=== PATIENT | female | born 2000 | race Caucasian/White ===

== ENCOUNTER 2024-06-10 06:06 | Inpatient (IN) | payer OTHER ==
[2024-06-10] MEDS ORDERED: OXYTOCIN 10 UNIT/ML 1 ML VIAL IM PRN (06:27)
[2024-06-10] MEDS ORDERED: miSOPROStoL 200 MCG TAB PO PRN (06:27)
[2024-06-10] MEDS ORDERED: miSOPROStoL 200 MCG TAB RECTAL PRN (06:27)
[2024-06-10] MEDS ORDERED: CARBOPROST TROMETHAMINE 250 MCG/ML 1 ML AMP IM PRN (06:27)
[2024-06-10] MEDS ORDERED: TERBUTALINE 1 MG/ML VIAL SQ PRN (06:27)
[2024-06-10] MEDS ORDERED: TRANEXAMIC 1,000 MG/100ML-NACL 1,000 MG in EMPTY BAG 1 BAG IV PRN (06:27)
[2024-06-10] MEDS: LACTATED RINGERS 1,000 ML IV SCH (06:36)
[2024-06-10] MEDS: OXYTOCIN 30 UNITS/500 ML NS 30 UNIT in SALINE 1 500ML.BAG IV SCH (06:45)
[2024-06-10 06:52] LABS: Basophils # (A) 0.1 k/uL (0-0.2); Basophils % (A) 1 %; Eosinophils # (A) 0.3 k/uL (0-0.7); Eosinophils % (A) 2 %; HCT 34.1 % (34.0-46.0); HGB 11.4 gm/dL (11.4-16.0); Lymphocytes # (A) 2.4 k/uL (1.0-4.8); Lymphocytes % (A) 15 %; MCH 28.5 pg (25.0-35.0); MCHC 33.3 g/dL (31.0-37.0); MCV 85.6 fL (80.0-100.0); Monocytes # (A) 0.6 k/uL (0-1.0); Monocytes % (A) 4 %; Neutrophils % (A) 77 %; Platelet Count 179 k/uL (150-450); RBC 3.99 m/uL (3.80-5.40); WBC 15.5 k/uL (3.8-10.6)
[2024-06-10] MEDS ORDERED: SODIUM CHLORIDE 0.9% 250 ML BAG ONE (11:33)
[2024-06-10] MEDS ORDERED: fentaNYL (PF) 50 MCG/ML 5 ML AMP ONE (11:33)
[2024-06-10] MEDS ORDERED: ROPIVACAINE 5 MG/ML 30 ML VIAL ONE (11:33)
[2024-06-10] MEDS: METHYLERGONOVINE 0.2 MG/ML 1 ML AMP IM PRN (23:10)
[2024-06-10] MEDS: LIDOCAINE 0.5% (PF) 5 MG/ML (50 ML SDV) SQ PRN (23:15)
[2024-06-10] MEDS ORDERED: LANOLIN CREAM 1 GM TUBE TOPICAL PRN (23:19)
[2024-06-10] MEDS ORDERED: diphenhydrAMINE 25 MG CAP PO PRN (23:19)
[2024-06-10] MEDS ORDERED: diphenhydrAMINE 50 MG CAP PO PRN (23:19)
[2024-06-10] MEDS ORDERED: diphenhydrAMINE 50 MG/ML 1 ML VIAL IVP PRN ×2 (23:19)
[2024-06-10] MEDS ORDERED: HYDROCORTISONE 2.5% RECTAL CREAM 30 GM TUBE RECTAL PRN (23:19)
[2024-06-10] MEDS ORDERED: SIMETHICONE 80 MG CHEWABLE PO PRN (23:19)
[2024-06-10] MEDS ORDERED: ZOLPIDEM 5 MG TAB PO PRN (23:19)
--- NOTE | 2024-06-10 23:23 | P.PROBDLV ---
Vaginal Delivery Note - . Vaginal Delivery Note: Date of service 06/10 Findings Viable female delivered at 2259, weight of 7 pounds 6.2 ounces, Apgars of 8 and 9 at 1 and 5 minutes respectively. This is a 23-year-old 1 para 0 that presented to labor and delivery at 41/7 weeks for scheduled induction of labor secondary to postdates. Patient had been receiving routine care which had been essentially uncomplicated. Patient was admitted to labor and delivery and Pitocin induction of labor was begun. Patient made good progress through labor eventually becoming uncomfortable and requesting epidural. Epidural was placed without difficulty by the anesthesia department. Patient made good progress toward complete dilation. Once completely dilated patient began pushing and had a normal spontaneous vaginal delivery of a viable female at 2259, weight of 7 pounds 6.2 ounces, Apgars of 8 and 9 at 1 and 5 minutes respectively. After 2- minute delay the umbilical cord was doubly clamped and cut and the placenta was delivered spontaneously intact with a three-vessel cord being noted. On inspection of patient's vaginal vault a midline second-degree laceration was appreciated this was injected with lidocaine and repaired in the usual fashion with 3-0 Rapide. Hemostasis was appreciated after closure. Uterus was noted to be quite boggy therefore Methergine was given and uterus firmed with fundal massage. Bladder was drained for approximately 100 cc of clear yellow urine via red rubber catheter Estimated blood loss 200 cc All counts were to be correct x 2 at the end of the delivery. Patient and infant tolerated delivery well and are resting comfortably
[2024-06-11] MEDS: BENZOCAINE/MENTHOL SPRAY 1 GM/SPRAY AEROSOL TOPICAL PRN (00:21)
[2024-06-11] MEDS: IBUPROFEN 800 MG TAB PO SCH (00:21)
[2024-06-11] MEDS: ACETAMINOPHEN TAB 500 MG TAB PO SCH (05:15)
--- NOTE | 2024-06-11 08:04 | P.PNOBGVD ---
Subjective - Subjective Principal diagnosis: Post day #1 Interval history: Patient is doing well . Lochia is noted to be minimal. Breast- feeding is going well. Pain is well-controlled. Patient reports: Reports appetite normal, Reports voiding normally, Reports pain well controlled, Reports ambulating normally : doing well, nursing well Objective - Latest Vital Signs Latest vital signs: Vital Signs Temp Pulse Resp BP Pulse Ox 06/11/24 05:19 97.5 F L 95 18 107/68 98 06/11/24 01:17 96.9 F L 117 H 18 123/70 99 06/11/24 01:02 120 H 18 128/70 06/11/24 00:47 120 H 16 119/49 06/11/24 00:32 130 H 16 137/71 06/11/24 00:17 120 H 16 117/56 06/11/24 00:02 125 H 16 115/62 98 06/10/24 23:47 123 H 18 109/59 98 06/10/24 23:32 125 H 18 107/59 06/10/24 23:17 98.0 F 125 H 18 107/53 Intake and Output 06/10/24 06/11/24 06/11/24 22:59 06:59 14:59 Intake Total 445.200 Output Total 575 Balance -129.800 Intake: Intake, IV Titration 205.200 Amount Oxytocin 30 Units/500 ml 205.200 Ns 30 unit In Saline 1 500ml.bag @ Per Protocol IV .Q0M [facility] Rx#:[id number] Oral 240 Output: Output, Estimated Blood 200 Loss Amount Output, Quantitative 375 Blood Loss Other: # Voids 1 - Exam Extremities: Present: normal, edema Abdomen: Present: normal appearance, soft Uterus: Present: normal, firm Assessment and Plan (1) Term Current Visit: Yes Status: Acute Code(s): Z34.90 - ENCNTR FOR SUPRVSN OF NORMAL , UNSP, UNSP TRIMESTER SNOMED Code(s): 09131395 (2) Status post vaginal delivery Current Visit: Yes Status: Acute Code(s): TML6178 - SNOMED Code(s): 806168046 (3) Obstetrical laceration, second degree Current Visit: Yes Status: Acute Code(s): O70.1 - SECOND DEGREE PERINEAL LACERATION DURING DELIVERY SNOMED Code(s): 3698839 Plan: 23-year-old G1 now P1 status postnormal spontaneous vaginal delivery. Doing well Continue routine care anticipate discharge home tomorrow
[2024-06-11] MEDS: SENNOSIDES-DOCUSATE SODIUM 1 EACH TAB PO SCH (08:24)
--- NOTE | 2024-06-12 08:41 | P.DS ---
Providers Date of admission: 06/10/24 06:06 Expected date of discharge: 06/12/24 Attending physician: Chanell Polanco Primary care physician: Stated None - Discharge Diagnosis(es) (1) Term Current Visit: Yes Status: Acute (2) Status post vaginal delivery Current Visit: Yes Status: Acute (3) Obstetrical laceration, second degree Current Visit: Yes Status: Acute Hospital Course: This is a 23 yo G1 now P1 that presented to labor and delivery on 06/10 for scheduled induction of labor. Patient was noted to be 40 and 1 sevenths weeks at the time of admission. Patient had been receiving routine care which had been essentially uncomplicated. Patient was admitted to labor and delivery and Pitocin induction of labor was begun. Patient made good progress through labor eventually becoming uncomfortable and requesting epidural. Patient made good progress toward complete dilation once completely dilated patient began pushing and had a normal spontaneous vaginal delivery of a viable female infant at 2259, weight of 7 pounds 6.2 ounces. Patient did sustain a midline second-degree laceration. Patient's course has been uneventful. In this day #2 she is ambulating and voiding without difficulty. She is tolerating a regular diet without nausea or vomiting. She states her pain is well-controlled. She denies concerns and would like discharge home. Patient Condition at Discharge: Good Plan - Discharge Summary New Discharge Prescriptions: No Action Vit No.179/Iron/Folic [ Tablet] 1 tab PO DAILY Aspirin [Adult Low Dose Aspirin EC] 81 mg PO DAILY Discharge Medication List Aspirin [Adult Low Dose Aspirin EC] 81 mg PO DAILY 02/29/24 [History] Vit No.179/Iron/Folic [ Tablet] 1 tab PO DAILY 02/29/24 [History] Follow up Appointment(s)/Referral(s): Chanell Polanco DO [Doctor of Osteopathic Medicine] - 07/21/24 10:15 am Patient Instructions/Handouts: Vaginal Delivery (DC), Vaginal Delivery (GEN) Activity/Diet/Wound Care/Special Instructions: No tub baths or intercourse until 6 weeks . [id number] ibuprofen 600 mg or 3 tablets every 6 hours as needed for pain. Patient is to make a routine visit at 6 weeks. Should she have any concerns prior to this visit she is urged to call the office and be seen prior. Discharge Disposition: HOME SELF-CARE
--- NOTE | 2024-06-12 08:42 | P.HPOB ---
History of Present Illness H&P Date: 06/10/24 Chief Complaint: Term 23-year-old 1 para 0 at 40 and 1 sevenths weeks that presents to labor and delivery for induction of labor. Patient has been receiving routine care which has been essentially uncomplicated. Patient notes good movement denies vaginal bleeding or loss of fluid blood work this patient is a blood type of A+, rubella status immune, RPR is nonreactive, hepatitis B surface engine negative, HIV negative, group be ta strep culture was negative on May 11. Review of Systems Constitutional: Denies chills, Denies fatigue, Denies fever Ears, nose, mouth and throat: Denies headache Cardiovascular: Reports leg edema Respiratory: Denies dyspnea Gastrointestinal: Denies constipation, Denies diarrhea, Denies nausea, Denies vomiting Genitourinary: Reports Past Medical History Past Medical History: No Reported History History of Any Multi-Drug Resistant Organisms: None Reported Past Surgical History: No Surgical Hx Reported Past Anesthesia/Blood Transfusion Reactions: No Reported Reaction Smoking Status: Former smoker Past Drug Use History: None Reported - Past Family History Mother Family Medical History: No Reported History Medications and Allergies Home Medications Medication Instructions Recorded Confirmed Type Aspirin [Adult Low Dose Aspirin EC] 81 mg PO DAILY 02/29/24 06/10/24 History Vit No.179/Iron/Folic 1 tab PO DAILY 02/29/24 06/10/24 History [ Tablet] Allergies Allergy/AdvReac Type Severity Reaction Status Date / Time Penicillins Allergy Rash/Hives Verified 06/10/24 06:27 Exam Osteopathic Statement: *. No significant issues noted on an osteopathic structural exam other than those noted in the History and Physical/Consult. Vital Signs Temp Pulse Resp BP Pulse Ox 06/10/24 06:26 97.6 F 96 18 136/75 99 Intake and Output 06/10/24 06/10/24 06/10/24 06:59 14:59 22:59 Intake Total 1000 Balance 1000 Intake: IV 1000 Other: Weight 83.007 kg Targeted physical exam is performed this date in general is a well-nourished well-developed female no acute distress, breathing is nonlabored, heart has a regular rate and rhythm, abdomen is gravid, on cervical exam she is 3/70/- 2 amniotomy is performed and clear fluid was obtained. heart tones are noted be category 1. She is asad irregularly. Results Result Diagrams: 06/10/24 06:35 Abnormal Lab Results - Last 24 Hours (Table) 06/10/24 Range/Units 06:35 WBC 15.5 H (3.8-10.6) k/uL Neutrophils # 12.0 H (1.3-7.7) k/uL Assessment and Plan (1) Term Current Visit: Yes Status: Acute Code(s): Z34.90 - ENCNTR FOR SUPRVSN OF NORMAL , UNSP, UNSP TRIMESTER SNOMED Code(s): 34528945 Plan: 23-year-old 1 para 0 at 41/7 weeks presents for induction of labor. Patient is admitted and Pitocin induction of labor is begun per hospital protocol. Options for analgesia are discussed. Patient states understanding will consider.
[2024-06-12 08:58] VITALS: BP 115/73; PULSE 86; RESP 16; TEMP 97.4
== END 2024-06-12 13:00 | disposition home or self-care (01) | DRG 560 ==
LOC: 4FBP 06:06
PROVIDERS: ADMIT Obstetrics & Gynecology Obstetrics; ATTEND Obstetrics & Gynecology Obstetrics
PROC: 10E0XZZ Delivery of Products of Conception, External Approach (ICD-10-PCS; principal; 2024-06-10)
PROC: 0KQM0ZZ Repair Perineum Muscle, Open Approach (ICD-10-PCS; 2024-06-10)
PROC: 10907ZC Drainage of Amniotic Fluid, Therapeutic from Products of Conception, Via Natural or Artificial Opening (ICD-10-PCS; 2024-06-10)
PROC: 3E033VJ Introduction of Other Hormone into Peripheral Vein, Percutaneous Approach (ICD-10-PCS; 2024-06-10)
DX: O26.893 Other specified pregnancy related conditions, third trimester (principal); O70.1 Second degree perineal laceration during delivery; Z37.0 Single live birth; Z79.82 Long term (current) use of aspirin; Z87.891 Personal history of nicotine dependence; Z88.0 Allergy status to penicillin; Z67.40 Type O blood, Rh positive
CPT/HCPCS: 85025; 86850; 86900; 86901

== ENCOUNTER 2024-07-29 22:45 | Emergency (ER) | payer OTHER ==
--- NOTE | 2024-07-29 23:13 | ED ---
Abdominal Pain HPI - General Source: patient Mode of arrival: ambulatory <Leif Mcneal - Last Filed: 07/29/24 23:12> <Neena Woods - Last Filed: 07/30/24 03:45> <Ismael Dodd - Last Filed: 07/30/24 07:09> - General Chief Complaint: Abdominal Pain Stated Complaint: abd pain Time Seen by Provider: 07/29/24 23:12 - History of Present Illness Initial Comments: 24-year-old female presenting with chief complaint of pelvic pain. Patient started having left-sided pelvic pain today. She does have history of ovarian cysts and states that this feels similar. She states that on Saturday she started her menstrual cycle and on Saturday she started a new control. Patient is 7 weeks . She is having nausea and vomiting. No known fever. No urinary symptoms. (Leif Mcneal) 24-year-old female presents to the emergency department for evaluation of left- sided abdominal pain. Patient states that this started today. She denies any history of similar pain. She notes it is a sharp pain. Denies any fever, chills. Denies urinary symptoms. Admits to nausea with vomiting. (Moises Woods) - Related Data Home Medications Medication Instructions Recorded Confirmed Aspirin [Adult Low Dose Aspirin EC] 81 mg PO DAILY 02/29/24 06/10/24 Vit No.179/Iron/Folic 1 tab PO DAILY 02/29/24 06/10/24 [ Tablet] Allergies Allergy/AdvReac Type Severity Reaction Status Date / Time Penicillins Allergy Rash/Hives Verified 06/10/24 06:27 Review of Systems ROS Other: All systems not noted in ROS Statement are negative. <Leif Mcneal - Last Filed: 07/29/24 23:12> ROS Other: All systems not noted in ROS Statement are negative. <Neena Woods - Last Filed: 07/30/24 03:45> ROS Other: All systems not noted in ROS Statement are negative. <Ismael Dodd - Last Filed: 07/30/24 07:09> ROS Statement: Those systems with pertinent positive or pertinent negative responses have been documented in the HPI. Past Medical History Past Medical History: No Reported History History of Any Multi-Drug Resistant Organisms: None Reported Past Surgical History: No Surgical Hx Reported Past Anesthesia/Blood Transfusion Reactions: No Reported Reaction Smoking Status: Former smoker Past Drug Use History: None Reported - Past Family History Mother Family Medical History: No Reported History <Leif Mcneal - Last Filed: 07/29/24 23:12> General Exam <Leif Mcneal - Last Filed: 07/29/24 23:12> Limitations: no limitations General appearance: alert, in no apparent distress Head exam: Present: atraumatic, normocephalic, normal inspection Eye exam: Present: normal appearance, PERRL, EOMI. Absent: scleral icterus, conjunctival injection, periorbital swelling ENT exam: Present: normal exam, mucous membranes moist Neck exam: Present: normal inspection. Absent: tenderness, meningismus, lymphadenopathy Respiratory exam: Present: normal lung sounds bilaterally. Absent: respiratory distress, wheezes, rales, rhonchi, stridor Cardiovascular Exam: Present: regular rate, normal rhythm, normal heart sounds. Absent: systolic murmur, diastolic murmur, rubs, gallop, clicks GI/Abdominal exam: Present: soft, normal bowel sounds. Absent: distended, tenderness, guarding, rebound, rigid Extremities exam: Present: normal inspection, full ROM, normal capillary refill. Absent: tenderness, pedal edema, joint swelling, calf tenderness Back exam: Present: normal inspection Neurological exam: Present: alert, oriented X3 Psychiatric exam: Present: normal affect, normal mood Skin exam: Present: warm, dry, intact, normal color. Absent: rash <Neena Woods - Last Filed: 07/30/24 03:45> - General Exam Comments Initial Comments: Visual Physical Exam Vital signs reviewed General: Well-appearing, nontoxic, no acute distress. Head: Normocephalic, atraumatic Eyes: PERRLA, EOMI ENT: Airway patent Chest: Nonlabored breathing Skin: No visual rash, normal skin tone Neuro: Alert and oriented 3 Musculoskeletal: No gross abnormalities (Leif Mcneal) Course Vital Signs 07/29/24 07/30/24 23:02 03:06 Temperature 97.9 F 97.8 F Pulse Rate 84 73 Respiratory 18 18 Rate Blood Pressure 161/74 107/71 O2 Sat by Pulse 100 99 Oximetry Medical Decision Making <Leif Mcneal - Last Filed: 07/29/24 23:12> - Lab Data Result diagrams: 07/29/24 23:17 07/29/24 23:17 <Neena Woods - Last Filed: 07/30/24 03:45> - Lab Data Result diagrams: 07/29/24 23:17 07/29/24 23:17 <Ismael Dodd - Last Filed: 07/30/24 07:09> - Medical Decision Making I performed the quick note portion of this visit, electronically signed Leif Mcneal PA-C (Leif Mcneal) Was pt. sent in by a medical professional or institution (, JOHN, PATROL GUARD, urgent care, hospital, or alf...) When possible be specific @ -[No] Did you speak to anyone other than the patient for history (EMS, parent, family, police, friend...)? What history was obtained from this source @ -[No] Did you review nursing and triage notes (agree or disagree)? Why? @ -[I reviewed and agree with nursing and triage notes] Were old charts reviewed (outside hosp., previous admission, EMS record, old EKG, old radiological studies, urgent care reports/EKG's, alf records)? Report findings @ -[No old charts were reviewed] Differential Diagnosis (chest pain, altered mental status, abdominal pain women, abdominal pain men, vaginal bleeding, weakness, fever, dyspnea, syncope, headache, dizziness, GI bleed, back pain, seizure, CVA, palpatations, mental health, musculoskeletal)? @ -Differential Abdominal Pain Women: Appendicitis, Cholecystitis, diverticulosis, ischemic bowel, pancreatitis, hepatitis, UTI, gastroenteritis, AAA, incarcerated hernia, bowel obstruction, constipation, inflammatory bowel, hepatitis, peptic ulcer disease, splenic infarction, perforated viscus, vulvitis, ovarian torsion, PID, kidney stone, placenta abruption, this is not meant to be an all-inclusive list EKG interpreted by me (3pts min.). @ -None X-rays interpreted by me (1pt min.). @ -[None done] CT interpreted by me (1pt min.). @ -[None done] U/S interpreted by me (1pt. min.). @ -Transvaginal ultrasound shows no evidence of ovarian torsion What testing was considered but not performed or refused? (CT, X-rays, U/S, labs)? Why? @ -[None] What meds were considered but not given or refused? Why? @ -[None] Did you discuss the management of the patient with other professionals (professionals i.e. , PA, PATROL GUARD, lab, RT, psych nurse, social media manager, net programmer, teacher, navy airspace officer, caser shoe parts)? Give summary @ -[No] Was smoking cessation discussed for >3mins.? @ -[No] Was critical care preformed (if so, how long)? @ -[No] Were there social determinants of health that impacted care today? How? (Homelessness, low income, unemployed, alcoholism, drug addiction, transportation, low edu. Level, literacy, decrease access to med. care, halfway, rehab)? @ -[No] Was there de-escalation of care discussed even if they declined (Discuss DNR or withdrawal of care, Hospice)? DNR status @ -[No] What co-morbidities impacted this encounter? (DM, HTN, Smoking, COPD, CAD, Cancer, CVA, ARF, Chemo, Hep., AIDS, mental health diagnosis, sleep apnea, morbid obesity)? @ -[None] Was patient admitted / discharged? Hospital course, mention meds given and route, prescriptions, significant lab abnormalities, going to OR and other pertinent info. @ -Patient presented to the emergency department for evaluation of abdominal pain.Patient was initially evaluated as a quick note. Laboratory studies obtained revealing WBC of 14.8; CMP shows sodium 141, potassium 3.9, lactic acid 2.7. UA shows moderate blood, 2+ ketones, 100 RBCs, 7 WBCs. Urine hCG was negative. Patient had multiple rounds of medication for pain and nausea control in the emergency department including Zofran, Reglan, Benadryl, morphine. A CT of the abdomen pelvis obtained. Undiagnosed new problem with uncertain prognosis? @ -[No] Drug Therapy requiring intensive monitoring for toxicity (Heparin, Nitro, Insulin, Cardizem)? @ -[No] Were any procedures done? @ -[No] Diagnosis/symptom? @ -[default] Acute, or Chronic, or Acute on Chronic? @ -[default] Uncomplicated (without systemic symptoms) or Complicated (systemic symptoms)? @ -[default] Side effects of treatment? @ -[No] Exacerbation, Progression, or Severe Exacerbation? @ -[No] Poses a threat to life or bodily function? How? (Chest pain, [place], [place], pneumonia, PE, COPD, DKA, ARF, appy, cholecystitis, CVA, Diverticulitis, Homicidal, Suicidal, threat to staff... and all critical care pts) @ -[No] (Neena Woods) - Lab Data Lab Results 07/29/24 07/29/24 07/29/24 Range/Units 23:17 23:17 23:17 WBC 14.80 H (4.50-10.00) 10*3/uL RBC 4.74 (4.10-5.20) 10*6/uL Hgb 13.3 (12.0-15.0) g/dL Hct 38.6 (37.2-46.3) % MCV 81.4 (80.0-97.0) fL MCH 28.1 (27.0-32.0) pg MCHC 34.5 (32.0-37.0) g/dL Plt Count 273 (140-440) 10*3/uL MPV 11.0 (9.5-12.2) fL Immature Gran % (Auto) 0.4 % Neutrophils % 66.5 % Lymphocytes % 25.7 % Monocytes % 5.1 % Eosinophils % 2.0 % Basophils % 0.3 % Immature Gran # 0.06 H (0.00-0.04) 10*3/uL Neutrophils # 9.86 H (1.80-7.70) 10*3/uL Lymphocytes # 3.80 (0.90-5.00) 10*3/uL Monocytes # 0.75 (0.20-1.00) 10*3/uL Eosinophils # 0.29 (0.04-0.35) 10*3/uL Basophils # 0.04 (0.00-0.10) 10*3/uL Sodium 141 (137-145) mmol/L Potassium 3.9 (3.5-5.1) mmol/L Chloride 103 (98-107) mmol/L Carbon Dioxide 23 (22-30) mmol/L Anion Gap 15 mmol/L BUN 19 H (7-17) mg/dL Creatinine 0.72 (0.52-1.04) mg/dL Est GFR (CKD-EPI)AfAm >90 (>60 ml/min/1.73 sqM) Est GFR (CKD-EPI)NonAf >90 (>60 ml/min/1.73 sqM) Glucose 107 H (74-99) mg/dL Lactic Ac Sepsis Rflx Plasma Lactic Acid Jez 2.7 H* (0.7-2.0) mmol/L Calcium 10.5 H (8.4-10.2) mg/dL Total Bilirubin 0.8 (0.2-1.3) mg/dL AST 21 (14-36) U/L ALT 15 (4-34) U/L Alkaline Phosphatase 156 H (38-126) U/L Total Protein 8.0 (6.3-8.2) g/dL Albumin 5.1 H (3.5-5.0) g/dL Lipase 98 (23-300) U/L Urine Color Urine Appearance (Clear) Urine pH (5.0-8.0) Ur Specific [place] (1.001-1.035) Urine Protein (Negative) Urine Glucose (UA) (Negative) Urine Ketones (Negative) Urine Blood (Negative) Urine Nitrite (Negative) Urine Bilirubin (Negative) Urine Urobilinogen (<2.0) mg/dL Ur Leukocyte Esterase (Negative) Urine RBC (0-5) /hpf Urine WBC (0-5) /hpf Ur Squamous Epith Cells (0-4) /hpf Urine Bacteria (None) /hpf Urine Mucus (None) /hpf Urine HCG, Qual (Not Detectd) 07/29/24 07/30/24 07/30/24 Range/Units 23:44 01:57 01:57 WBC (4.50-10.00) 10*3/uL RBC (4.10-5.20) 10*6/uL Hgb (12.0-15.0) g/dL Hct (37.2-46.3) % MCV (80.0-97.0) fL MCH (27.0-32.0) pg MCHC (32.0-37.0) g/dL Plt Count (140-440) 10*3/uL MPV (9.5-12.2) fL Immature Gran % (Auto) % Neutrophils % % Lymphocytes % % Monocytes % % Eosinophils % % Basophils % % Immature Gran # (0.00-0.04) 10*3/uL Neutrophils # (1.80-7.70) 10*3/uL Lymphocytes # (0.90-5.00) 10*3/uL Monocytes # (0.20-1.00) 10*3/uL Eosinophils # (0.04-0.35) 10*3/uL Basophils # (0.00-0.10) 10*3/uL Sodium (137-145) mmol/L Potassium (3.5-5.1) mmol/L Chloride (98-107) mmol/L Carbon Dioxide (22-30) mmol/L Anion Gap mmol/L BUN (7-17) mg/dL Creatinine (0.52-1.04) mg/dL Est GFR (CKD-EPI)AfAm (>60 ml/min/1.73 sqM) Est GFR (CKD-EPI)NonAf (>60 ml/min/1.73 sqM) Glucose (74-99) mg/dL Lactic Ac Sepsis Rflx Y Plasma Lactic Acid Jez (0.7-2.0) mmol/L Calcium (8.4-10.2) mg/dL Total Bilirubin (0.2-1.3) mg/dL AST (14-36) U/L ALT (4-34) U/L Alkaline Phosphatase (38-126) U/L Total Protein (6.3-8.2) g/dL Albumin (3.5-5.0) g/dL Lipase (23-300) U/L Urine Color Yellow Urine Appearance Clear (Clear) Urine pH 5.5 (5.0-8.0) Ur Specific [place] 1.031 (1.001-1.035) Urine Protein Trace H (Negative) Urine Glucose (UA) Negative (Negative) Urine Ketones 2+ H (Negative) Urine Blood Moderate H (Negative) Urine Nitrite Negative (Negative) Urine Bilirubin Negative (Negative) Urine Urobilinogen <2.0 (<2.0) mg/dL Ur Leukocyte Esterase Negative (Negative) Urine RBC 100 H (0-5) /hpf Urine WBC 7 H (0-5) /hpf Ur Squamous Epith Cells 2 (0-4) /hpf Urine Bacteria Rare H (None) /hpf Urine Mucus Few H (None) /hpf Urine HCG, Qual Not Detected (Not Detectd) 07/30/24 Range/Units 02:21 WBC (4.50-10.00) 10*3/uL RBC (4.10-5.20) 10*6/uL Hgb (12.0-15.0) g/dL Hct (37.2-46.3) % MCV (80.0-97.0) fL MCH (27.0-32.0) pg MCHC (32.0-37.0) g/dL Plt Count (140-440) 10*3/uL MPV (9.5-12.2) fL Immature Gran % (Auto) % Neutrophils % % Lymphocytes % % Monocytes % % Eosinophils % % Basophils % % Immature Gran # (0.00-0.04) 10*3/uL Neutrophils # (1.80-7.70) 10*3/uL Lymphocytes # (0.90-5.00) 10*3/uL Monocytes # (0.20-1.00) 10*3/uL Eosinophils # (0.04-0.35) 10*3/uL Basophils # (0.00-0.10) 10*3/uL Sodium (137-145) mmol/L Potassium (3.5-5.1) mmol/L Chloride (98-107) mmol/L Carbon Dioxide (22-30) mmol/L Anion Gap mmol/L BUN (7-17) mg/dL Creatinine (0.52-1.04) mg/dL Est GFR (CKD-EPI)AfAm (>60 ml/min/1.73 sqM) Est GFR (CKD-EPI)NonAf (>60 ml/min/1.73 sqM) Glucose (74-99) mg/dL Lactic Ac Sepsis Rflx Plasma Lactic Acid Jez 1.1 (0.7-2.0) mmol/L Calcium (8.4-10.2) mg/dL Total Bilirubin (0.2-1.3) mg/dL AST (14-36) U/L ALT (4-34) U/L Alkaline Phosphatase (38-126) U/L Total Protein (6.3-8.2) g/dL Albumin (3.5-5.0) g/dL Lipase (23-300) U/L Urine Color Urine Appearance (Clear) Urine pH (5.0-8.0) Ur Specific [place] (1.001-1.035) Urine Protein (Negative) Urine Glucose (UA) (Negative) Urine Ketones (Negative) Urine Blood (Negative) Urine Nitrite (Negative) Urine Bilirubin (Negative) Urine Urobilinogen (<2.0) mg/dL Ur Leukocyte Esterase (Negative) Urine RBC (0-5) /hpf Urine WBC (0-5) /hpf Ur Squamous Epith Cells (0-4) /hpf Urine Bacteria (None) /hpf Urine Mucus (None) /hpf Urine HCG, Qual (Not Detectd) Disposition <Leif Mcneal - Last Filed: 07/29/24 23:12> <Neena Woods - Last Filed: 07/30/24 03:45> Is patient prescribed a controlled substance at d/c from ED?: No <Ismael Dodd - Last Filed: 07/30/24 07:09> Clinical Impression: Kidney stone Disposition: HOME SELF-CARE Condition: Good Instructions (If sedation given, give patient instructions): Kidney Stones (ED) Referrals: None,Stated [Primary Care Provider] - 1-2 days
[2024-07-29] MEDS: MORPHINE SULFATE 4 MG/ML SYRINGE IVP STA (23:21)
[2024-07-29] MEDS: ONDANSETRON 4 MG/2 ML VIAL IVP STA (23:21)
[2024-07-29 23:26] LABS: Basophils # (A) 0.04 10*3/uL (0.00-0.10); Basophils % (A) 0.3 %; Eosinophils # (A) 0.29 10*3/uL (0.04-0.35); HCT 38.6 % (37.2-46.3); HGB 13.3 g/dL (12.0-15.0); Lymphocytes % (A) 25.7 %; MCH 28.1 pg (27.0-32.0); MCHC 34.5 g/dL (32.0-37.0); MCV 81.4 fL (80.0-97.0); Monocytes # (A) 0.75 10*3/uL (0.20-1.00); Monocytes % (A) 5.1 %; Neutrophils # (A) 9.86 10*3/uL (1.80-7.70); Neutrophils % (A) 66.5 %; Platelet Count 273 10*3/uL (140-440); RBC 4.74 10*6/uL (4.10-5.20); RDW 11.8 % (11.5-14.5)
[2024-07-29 23:38] LABS: ALT 15 U/L (4-34); AST 21 U/L (14-36); African American GFR (CKD) >90 (>60 ml/min/1.73 sqM); Albumin 5.1 g/dL (3.5-5.0); Alkaline Phosphatase 156 U/L (38-126); Anion Gap 15 mmol/L; Blood Urea Nitrogen 19 mg/dL (7-17); Calcium 10.5 mg/dL (8.4-10.2); Carbon Dioxide 23 mmol/L (22-30); Chloride 103 mmol/L (98-107); Glucose 107 mg/dL (74-99); Lipase 98 U/L (23-300); Non-African American GFR(CKD) >90 (>60 ml/min/1.73 sqM); Potassium 3.9 mmol/L (3.5-5.1); Sodium 141 mmol/L (137-145); Total Bilirubin 0.8 mg/dL (0.2-1.3)
[2024-07-30] MEDS: SODIUM CHLORIDE 0.9% 1,000 ML IV ONE (00:03)
--- NOTE | 2024-07-30 00:20 | US ---
EXAMINATION TYPE: US transvaginal DATE OF EXAM: 07/29/2024 COMPARISON: NONE CLINICAL INDICATION: Female, 24 years old with history of Left-sided pelvic pain; patient in a lot of pain. 7 weeks post . moving throughout exam TECHNIQUE: Transvaginal (TV). Transvaginal sonographic images were medically necessary to better assess the following anatomy: Ovar ies Doppler imaging: Color Doppler Images were obtained. Spectral doppler images were obtained. FINDINGS: Date of LMP: 7 weeks pp EXAM MEASUREMENTS: Uterus: 7.0 x 3.1 x 3.8 cm Endometrial Stripe: 0.2 cm Right Ovary: 3.6 x 1.9 x 1.9 cm Left Ovary: 3.7 x 1.6 x 1.9 cm 1. Uterus: Anteverted wnl 2. Endometrium: wnl 3. Right Ovary: wnl 4. Left Ovary: wnl Spectral, color and waveform doppler imaging shows good arterial and venous flow within the ovaries ; there is no evidence for ovarian torsion. 5. Bilateral Adnexa: wnl 6. Posterior cul-de-sac: wnl IMPRESSION: 1. No evidence for acute abdominal process. 2. Appropriate arterial and venous spectral waveforms to the ovaries. [facility], , 07/30/2024 12:17 AM
[2024-07-30] MEDS: diphenhydrAMINE 50 MG/ML 1 ML VIAL IVP STA (00:33)
[2024-07-30] MEDS: MORPHINE SULFATE 4 MG/ML SYRINGE IVP STA (00:33)
[2024-07-30] MEDS: METOCLOPRAMIDE 5 MG/ML 2 ML VIAL IVP STA (00:33)
[2024-07-30] MEDS: KETOROLAC 15 MG/ML 1 ML VIAL IVP STA (02:22)
[2024-07-30 02:36] LABS: Appearance,Urine Clear (Clear); Bacteria,Urine Rare /hpf; Bilirubin,Urine Negative (Negative); Blood,Urine Moderate (Negative); Color,Urine Yellow; Glucose,Urine (UA) Negative (Negative); Ketones,Urine 2+ (Negative); Leukocyte Esterase,Urine Negative (Negative); Mucus,Urine Few /hpf; Nitrite,Urine Negative (Negative); PH, Urine 5.5 (5.0-8.0); Protein,Urine Trace (Negative); RBC,Urine 100 /hpf (0-5); Specific Gravity,Urine 1.031 (1.001-1.035); Squamous Epithelial Cell,Urine 2 /hpf (0-4); Urobilinogen,Urine <2.0 mg/dL (<2.0); WBC,Urine 7 /hpf (0-5)
--- NOTE | 2024-07-30 05:03 | CT ---
EXAM: CT Abdomen and Pelvis With Intravenous Contrast CLINICAL HISTORY: ITS.REASON CT Reason: abd pain TECHNIQUE: Axial computed tomography images of the abdomen and pelvis with intravenous contrast. CTDI is 15.7 mGy and DLP is 759.8 mGy-cm. This CT exam was performed using one or more of the following dose reduction techniques: automated exposure control, adjustment of the mA and/or kV according to patient size, and/or use of iterative reconstruction technique. COMPARISON: No relevant prior studies available. FINDINGS: Lung bases: Unremarkable. No mass. No consolidation. ABDOMEN: Liver: Unremarkable. No mass. Gallbladder and bile ducts: Unremarkable. No calcified stones. No ductal dilation. Pancreas: Unremarkable. No mass. No ductal dilation. Spleen: Unremarkable. No splenomegaly. Adrenals: Unremarkable. No mass. Kidneys and ureters: Asymmetric mild left hydroureter and surrounding fat stranding. Mild asymmetric delay of left renal enhancement and mild left perinephric stranding. 3 mm calculus in the posterior bladder just left of midline. Stomach and bowel: Unremarkable. No obstruction. No mucosal thickening. PELVIS: Appendix: Normal appendix. Bladder: Unremarkable. No mass. Reproductive: Unremarkable as visualized. ABDOMEN and PELVIS: Intraperitoneal space: Unremarkable. No free air. No significant fluid collection. Bones/joints: No acute fracture. No dislocation. Soft tissues: Unremarkable. Vasculature: Unremarkable. No abdominal aortic aneurysm. Lymph nodes: Unremarkable. No enlarged lymph nodes. IMPRESSION: Asymmetric mild left hydroureter and surrounding fat stranding. Mild asymmetric delay of left renal enhancement and mild left perinephric stranding. 3 mm calculus in the posterior bladder just left of midline. Findings may represent obstructive changes and calculus recently passed from the left ureter into the bladder. Also consider urinary tract infection.
[2024-07-30 07:20] VITALS: BP 105/72; PULSE 63; RESP 16; TEMP 98.1
== END 2024-07-30 07:20 | disposition home or self-care (01) ==
LOC: EC 22:45
DX: N20.0 Calculus of kidney (principal); Z87.891 Personal history of nicotine dependence; Z88.0 Allergy status to penicillin
CPT/HCPCS: 36415; 74177; 76830; 80053; 81001; 81025; 83605; 83690; 85025; 93975; 96361; 96374; 96375; 96376; 99284